=== PATIENT | male | born 1970 | race American Indian/Alaskan Native ===

== ENCOUNTER 2016-04-28 12:22 | Emergency (ER) | payer MEDICAID ==
[2016-04-28] MEDS ORDERED: FIORICET PO ONE (18:13)
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
[2016-04-28 18:54] VITALS: BP 141/104
== END 2016-04-28 19:08 | disposition home or self-care (01) ==
LOC: ED 12:22
DX: J06.9 Acute upper respiratory infection, unspecified (principal); J00 Acute nasopharyngitis [common cold]; K21.9 Gastro-esophageal reflux disease without esophagitis; G43.909 Migraine, unspecified, not intractable, without status migrainosus; J45.909 Unspecified asthma, uncomplicated; J44.9 Chronic obstructive pulmonary disease, unspecified; F12.10 Cannabis abuse, uncomplicated; Z87.891 Personal history of nicotine dependence
CPT/HCPCS: 96372; 99282; J2930

== ENCOUNTER 2017-06-07 08:34 | Inpatient (IN) | payer MEDICAID ==
[2017-06-07 10:03] LABS: Hemoglobin 15.6 gm/dl (11.8-15.2); Mean Corpuscular HGB Conc 35 % (32-34); Mean Corpuscular Hemoglobin 33 pg (28-32); Mean Corpuscular Volume 96 fl (84-94); Platelet Count 195 K/mm3 (140-440); Red Blood Count 4.71 M/mm3 (3.65-5.03); Red Cell Distribution Width 13.1 % (13.2-15.2)
--- NOTE | 2017-06-07 10:06 | XRay Report ---
CHEST 2 VIEWS INDICATION: Shortness of breath. COPD, asthma. COMPARISON: 01/12/2016. FINDINGS: PA and lateral chest radiographs demonstrate normal cardiomediastinal silhouette. Clear, well-expanded lungs. Intact bones. CONCLUSION: No acute disease in the chest. Thank you for the opportunity to participate in this patient's care.
[2017-06-07 10:15] LABS: BUN/Creatinine Ratio 8; Blood Urea Nitrogen 7 mg/dL (9-20); Calcium 9.1 mg/dL (8.4-10.2); Hemolysis Index 23
[2017-06-07 10:51] LABS: Basophils % (Manual) 0 % (0.0-1.8); RBC Morphology Normal; Total Cells Counted 100
[2017-06-07] MEDS ORDERED: ATROVENT IH ONE (11:38)
[2017-06-07] MEDS ORDERED: PROVENTIL IH ONE ×2 (11:38→12:16)
[2017-06-07] MEDS ORDERED: MORPHINE IV ONE (11:43)
[2017-06-07] MEDS ORDERED: ZOFRAN IV ONE (11:43)
--- NOTE | 2017-06-07 11:46 | Emergency Department Report ---
Blank Doc - Documentation Documentation: Patient is a 46-year-old [place] male with past medical history of asthma and COPD who presented with 4 days of cough cold congestion and wheezing. Patient also states that he's has a tight sensation in his chest. Patient on quick exam did have diffuse wheezes with retractions is difficulty speaking full sentences. Patient was started on neb treatments Solu-Medrol magnesium and removed to a treatment area to continue with the treatment will be reassessed by MLP
[2017-06-07] MEDS ORDERED: DUONEB *Not for PRN Use IH ONE ×2 (11:48→12:12)
[2017-06-07] MEDS ORDERED: MAGNESIUM SULFATE 2GM/50ML 2 GM/50 ML BAG IV ONE ×2 (11:51→12:27)
[2017-06-07] MEDS ORDERED: MAGNESIUM SULFATE 1 GM in NACL 0.9% 50 ML IV ONE ×3 (12:00→13:00)
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
[2017-06-07] MEDS ORDERED: NORCO 7.5/325 PO ONE (12:55)
[2017-06-07 18:17] VITALS: BP 128/89
== END 2017-06-07 18:59 | disposition left against medical advice (07) | DRG 191 ==
LOC: ED 08:34 → 3A 16:06
PROVIDERS: ADMIT Internal Medicine; ATTEND Internal Medicine
DX: J44.1 Chronic obstructive pulmonary disease with (acute) exacerbation (principal); J45.901 Unspecified asthma with (acute) exacerbation; K21.9 Gastro-esophageal reflux disease without esophagitis; G43.909 Migraine, unspecified, not intractable, without status migrainosus; F41.9 Anxiety disorder, unspecified; F12.90 Cannabis use, unspecified, uncomplicated; F14.90 Cocaine use, unspecified, uncomplicated; Z88.1 Allergy status to other antibiotic agents; Z87.01 Personal history of pneumonia (recurrent); Z72.89 Other problems related to lifestyle
CPT/HCPCS: 36415; 71046; 80048; 84484; 85007; 85025; 93005; 93010; 94640; 96374; 96375; J2270; J2405; J2930; J3475

== ENCOUNTER 2017-08-18 12:03 | Inpatient (IN) | payer MEDICAID ==
--- NOTE | 2017-08-18 12:50 | XRay Report ---
Chest 2 views: Compared to 06/07/17. History: Shortness of breath. Findings: Normal cardiomediastinal silhouette. Trachea is midline. No consolidation, pneumothorax or pleural effusion. Impression: No acute cardiopulmonary findings.
[2017-08-18 13:12] LABS: Hematocrit 47.1 % (35.5-45.6); Hemoglobin 16.1 gm/dl (11.8-15.2); Mean Corpuscular HGB Conc 34 % (32-34); Mean Corpuscular Hemoglobin 33 pg (28-32); Mean Corpuscular Volume 96 fl (84-94); Platelet Count 191 K/mm3 (140-440); Red Blood Count 4.91 M/mm3 (3.65-5.03); Red Cell Distribution Width 13.7 % (13.2-15.2)
[2017-08-18 13:16] LABS: Basophils % (Auto) 1.2 % (0.0-1.8); Eosinophils # (Auto) 0.3 K/mm3 (0.0-0.4); Eosinophils % (Auto) 10.4 % (0.0-4.3); Lymphocytes # (Auto) 1.2 K/mm3 (1.2-5.4); Lymphocytes % (Auto) 41.4 % (13.4-35.0); Monocytes # (Auto) 0.4 K/mm3 (0.0-0.8)
[2017-08-18 13:24] LABS: BUN/Creatinine Ratio 7; Blood Urea Nitrogen 6 mg/dL (9-20); Calcium 8.9 mg/dL (8.4-10.2); Hemolysis Index 9
[2017-08-18 14:20] LABS: Platelet Estimate Consistent w Auto; Total Cells Counted 100
[2017-08-18 14:21] LABS: RBC Morphology Normal
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
[2017-08-18] MEDS ORDERED: DELTASONE PO ONE (17:50)
[2017-08-18] MEDS ORDERED: PROVENTIL IH ONE (17:50)
[2017-08-18] MEDS ORDERED: ATROVENT IH ONE (17:50)
[2017-08-18] MEDS ORDERED: ZOFRAN ODT ONE (18:16)
[2017-08-18] MEDS ORDERED: PERCOCET 5/325 ONE (18:16)
[2017-08-18] MEDS ORDERED: XOPENEX IH ONE (18:47)
[2017-08-18] MEDS ORDERED: DUONEB *Not for PRN Use IH ONE ×2 (19:30→23:04)
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
[2017-08-18] MEDS ORDERED: ZOFRAN IV PRN (22:11)
[2017-08-18] MEDS ORDERED: SODIUM CHLORIDE FLUSH SYRINGE 10 ML IV PRN (22:11)
[2017-08-18] MEDS ORDERED: DUONEB *Not for PRN Use IH (22:13)
[2017-08-18] MEDS ORDERED: FIORICET PO PRN (22:14)
[2017-08-18] MEDS ORDERED: PROVENTIL IH PRN (22:20)
[2017-08-18] MEDS: NACL 0.9% 1000 ML 1,000 ML IV SCH (22:48)
[2017-08-18] MEDS: HEPARIN SUB-Q SCH (22:53)
[2017-08-18] MEDS: PEPCID PO SCH (22:58)
[2017-08-18] MEDS: PERCOCET 5/325 PO PRN (22:58)
[2017-08-18] MEDS: DUONEB *Not for PRN Use IH SCH (23:08)
[2017-08-19 05:43] LABS: Hematocrit 44.1 % (35.5-45.6); Hemoglobin 14.7 gm/dl (11.8-15.2); Mean Corpuscular HGB Conc 33 % (32-34); Mean Corpuscular Hemoglobin 33 pg (28-32); Mean Corpuscular Volume 98 fl (84-94); Platelet Count 184 K/mm3 (140-440); Red Blood Count 4.52 M/mm3 (3.65-5.03); Red Cell Distribution Width 13.4 % (13.2-15.2)
[2017-08-19] MEDS: PERCOCET 5/325 PO PRN ×3 (05:54→20:05)
[2017-08-19 05:58] LABS: Alanine Aminotransferase 16 units/L (7-56); Albumin 4.1 g/dL (3.9-5); BUN/Creatinine Ratio 9; Blood Urea Nitrogen 7 mg/dL (9-20); Calcium 8.9 mg/dL (8.4-10.2); Hemolysis Index 8
[2017-08-19 07:24] LABS: Band Neutrophils # (Manual) 0.1 K/mm3; Basophils % (Manual) 0 % (0.0-1.8); Eosinophils % (Manual) 0 % (0.0-4.3); Monocytes % (Manual) 0 % (0.0-7.3); Total Cells Counted 100
[2017-08-19 07:25] LABS: RBC Morphology Normal
[2017-08-19] MEDS: DUONEB *Not for PRN Use IH SCH ×3 (07:54→20:09)
[2017-08-19] MEDS ORDERED: DUONEB *Not for PRN Use IH SCH (08:00)
[2017-08-19] MEDS: LEVAQUIN 750MG/150ML 750 MG/150 ML BAG IV SCH (10:21)
[2017-08-19] MEDS: HEPARIN SUB-Q SCH ×2 (10:21→21:34)
[2017-08-19] MEDS: PEPCID PO SCH ×2 (10:21→21:34)
[2017-08-19] MEDS: SODIUM CHLORIDE FLUSH SYRINGE 10 ML IV SCH ×2 (10:22→21:41)
[2017-08-19] MEDS: HABITROL TD SCH (10:22)
--- NOTE | 2017-08-19 12:05 | Progress Note ---
Assessment and Plan Assessment and plan: Acute respiratory failure due to COPD and asthma exacerbation. Continue solu-medrol, Duoneb,supplemental Oxygen COPD exacerbation. Duoneb, solu-medrol DVT prophylaxis with Heparin. Full code status History Interval history: Shortness of breath, wheezing coughing Hospitalist Physical - Physical exam Narrative exam: General:Not in acute distress, lying in bed HEENT:Normocephalic, atraumatic Neck:supple,no JVD Lungs: Decreased breath sounds, bilateral rhonchi, wheeze Heart:S1 and S2 regular, no murmurs, rubs or gallop Abd: soft, non tender,non distended, normal bowel sounds Ext:no edema, no clubbing or cyanosis Neuro:Awake,alert,oriented x 3, moves all extremities, Psych:normal mood - Constitutional Vitals: Temp Pulse Resp BP Pulse Ox 98.8 F 72 18 121/83 97 08/19/17 07:58 08/19/17 08:10 08/19/17 08:10 08/19/17 07:58 08/19/17 07:59 General appearance: Present: mild distress, well-nourished Results - Labs CBC & Chem 7: 08/19/17 04:59 08/19/17 04:59 Labs: Laboratory Last Values WBC 4.1 K/mm3 (4.5-11.0) L 08/19/17 04:59 RBC 4.52 M/mm3 (3.65-5.03) 08/19/17 04:59 Hgb 14.7 gm/dl (11.8-15.2) 08/19/17 04:59 Hct 44.1 % (35.5-45.6) 08/19/17 04:59 MCV 98 fl (84-94) H 08/19/17 04:59 MCH 33 pg (28-32) H 08/19/17 04:59 MCHC 33 % (32-34) 08/19/17 04:59 RDW 13.4 % (13.2-15.2) 08/19/17 04:59 Plt Count 184 K/mm3 (140-440) 08/19/17 04:59 Lymph % (Auto) 41.4 % (13.4-35.0) H 08/18/17 12:58 [place] % (Auto) 12.0 % (0.0-7.3) H 08/18/17 12:58 Eos % (Auto) 10.4 % (0.0-4.3) H 08/18/17 12:58 Baso % (Auto) 1.2 % (0.0-1.8) 08/18/17 12:58 Lymph # 1.2 K/mm3 (1.2-5.4) 08/18/17 12:58 [place] # 0.4 K/mm3 (0.0-0.8) 08/18/17 12:58 Eos # 0.3 K/mm3 (0.0-0.4) 08/18/17 12:58 Baso # 0.0 K/mm3 (0.0-0.1) 08/18/17 12:58 Add Manual Diff Complete 08/19/17 04:59 Total Counted 100 08/19/17 04:59 Seg Neutrophils % Marriage Performer 08/19/17 04:59 Seg Neuts % (Manual) 89.0 % (40.0-70.0) H 08/19/17 04:59 Band Neutrophils % 2.0 % 08/19/17 04:59 Lymphocytes % (Manual) 9.0 % (13.4-35.0) L 08/19/17 04:59 Reactive Lymphs % (Man) 0 % 08/19/17 04:59 Monocytes % (Manual) 0 % (0.0-7.3) 08/19/17 04:59 Eosinophils % (Manual) 0 % (0.0-4.3) 08/19/17 04:59 Basophils % (Manual) 0 % (0.0-1.8) 08/19/17 04:59 Metamyelocytes % 0 % 08/19/17 04:59 Myelocytes % 0 % 08/19/17 04:59 Promyelocytes % 0 % 08/19/17 04:59 Blast Cells % 0 % 08/19/17 04:59 Nucleated RBC % Not Reportable 08/19/17 04:59 Seg Neutrophils # 1.0 K/mm3 (1.8-7.7) L 08/18/17 12:58 Seg Neutrophils # Man 3.6 K/mm3 (1.8-7.7) 08/19/17 04:59 Band Neutrophils # 0.1 K/mm3 08/19/17 04:59 Lymphocytes # (Manual) 0.4 K/mm3 (1.2-5.4) L 08/19/17 04:59 Abs React Lymphs (Man) 0.0 K/mm3 08/19/17 04:59 Monocytes # (Manual) 0.0 K/mm3 (0.0-0.8) 08/19/17 04:59 Eosinophils # (Manual) 0.0 K/mm3 (0.0-0.4) 08/19/17 04:59 Basophils # (Manual) 0.0 K/mm3 (0.0-0.1) 08/19/17 04:59 Metamyelocytes # 0.0 K/mm3 08/19/17 04:59 Myelocytes # 0.0 K/mm3 08/19/17 04:59 Promyelocytes # 0.0 K/mm3 08/19/17 04:59 Blast Cells # 0.0 K/mm3 08/19/17 04:59 WBC Morphology Not Reportable 08/19/17 04:59 Hypersegmented Neuts Not Reportable 08/19/17 04:59 Hyposegmented Neuts Not Reportable 08/19/17 04:59 Hypogranular Neuts Not Reportable 08/19/17 04:59 Smudge Cells Not Reportable 08/19/17 04:59 Toxic Granulation Not Reportable 08/19/17 04:59 Toxic Vacuolation Not Reportable 08/19/17 04:59 Dohle Bodies Not Reportable 08/19/17 04:59 Pelger-Huet Anomaly Not Reportable 08/19/17 04:59 Anne Rods Not Reportable 08/19/17 04:59 Platelet Estimate Appears normal 08/19/17 04:59 Clumped Platelets Not Reportable 08/19/17 04:59 Plt Clumps, EDTA Not Reportable 08/19/17 04:59 Large Platelets Not Reportable 08/19/17 04:59 Giant Platelets Not Reportable 08/19/17 04:59 Platelet Satelliting Not Reportable 08/19/17 04:59 Plt Morphology Comment Not Reportable 08/19/17 04:59 RBC Morphology Normal 08/19/17 04:59 Dimorphic RBCs Not Reportable 08/19/17 04:59 Polychromasia Not Reportable 08/19/17 04:59 Hypochromasia Not Reportable 08/19/17 04:59 Poikilocytosis Not Reportable 08/19/17 04:59 Anisocytosis Not Reportable 08/19/17 04:59 Microcytosis Not Reportable 08/19/17 04:59 Macrocytosis Not Reportable 08/19/17 04:59 Spherocytes Not Reportable 08/19/17 04:59 Pappenheimer Bodies Not Reportable 08/19/17 04:59 Sickle Cells Not Reportable 08/19/17 04:59 Target Cells Not Reportable 08/19/17 04:59 Tear Drop Cells Not Reportable 08/19/17 04:59 Ovalocytes Not Reportable 08/19/17 04:59 Helmet Cells Not Reportable 08/19/17 04:59 [place] Bodies Not Reportable 08/19/17 04:59 [place] Rings Not Reportable 08/19/17 04:59 [place] Cells Not Reportable 08/19/17 04:59 Bite Cells Not Reportable 08/19/17 04:59 Crenated Cell Not Reportable 08/19/17 04:59 Elliptocytes Not Reportable 08/19/17 04:59 Acanthocytes (Spur) Not Reportable 08/19/17 04:59 Rouleaux Not Reportable 08/19/17 04:59 Hemoglobin C Crystals Not Reportable 08/19/17 04:59 Schistocytes Not Reportable 08/19/17 04:59 Malaria parasites Not Reportable 08/19/17 04:59 Hernandez Bodies Not Reportable 08/19/17 04:59 Hem Pathologist Commnt No 08/19/17 04:59 D-Dimer < 135.0 ng/mlDDU (0-234) 08/18/17 18:37 Sodium 136 mmol/L (137-145) L 08/19/17 04:59 Potassium 4.5 mmol/L (3.6-5.0) 08/19/17 04:59 Chloride 98.6 mmol/L (98-107) 08/19/17 04:59 Carbon Dioxide 25 mmol/L (22-30) 08/19/17 04:59 Anion Gap 17 mmol/L 08/19/17 04:59 BUN 7 mg/dL (9-20) L 08/19/17 04:59 Creatinine 0.8 mg/dL (0.8-1.5) 08/19/17 04:59 Estimated GFR > 60 ml/min 08/19/17 04:59 BUN/Creatinine Ratio 9 % 08/19/17 04:59 Glucose 133 mg/dL (75-100) H 08/19/17 04:59 Hemoglobin A1c 5.6 % (4-6) 08/18/17 22:47 Calcium 8.9 mg/dL (8.4-10.2) 08/19/17 04:59 Total Bilirubin 0.30 mg/dL (0.1-1.2) 08/19/17 04:59 AST 14 units/L (5-40) 08/19/17 04:59 ALT 16 units/L (7-56) 08/19/17 04:59 Alkaline Phosphatase 60 units/L (35-129) 08/19/17 04:59 Troponin T < 0.010 ng/mL (0.00-0.029) 08/18/17 12:58 NT-Pro-B Natriuret Pep 10.81 pg/mL (0-450) 08/18/17 18:37 Total Protein 6.4 g/dL (6.3-8.2) 08/19/17 04:59 Albumin 4.1 g/dL (3.9-5) 08/19/17 04:59 Albumin/Globulin Ratio 1.8 % 08/19/17 04:59
[2017-08-19] MEDS: NACL 0.9% 1000 ML 1,000 ML IV SCH (13:15)
[2017-08-19] MEDS: AMBIEN PO PRN (23:28)
[2017-08-20] MEDS: PERCOCET 5/325 PO PRN ×3 (07:33→22:25)
[2017-08-20] MEDS: DUONEB *Not for PRN Use IH SCH ×3 (09:34→20:09)
[2017-08-20] MEDS: HEPARIN SUB-Q SCH ×2 (09:59→22:20)
[2017-08-20] MEDS: PEPCID PO SCH ×2 (09:59→22:25)
[2017-08-20] MEDS: SODIUM CHLORIDE FLUSH SYRINGE 10 ML IV SCH ×2 (09:59→22:27)
[2017-08-20] MEDS: LEVAQUIN 750MG/150ML 750 MG/150 ML BAG IV SCH (10:00)
[2017-08-20] MEDS: HABITROL TD SCH (10:36)
--- NOTE | 2017-08-20 12:07 | Progress Note ---
Assessment and Plan Assessment and plan: Acute respiratory failure due to COPD and asthma exacerbation. Continue solu-medrol, Duoneb,supplemental Oxygen. Still having shortness of breath,audible wheeze COPD exacerbation. Duoneb, solu-medrol. Severe headache. Will get CT head DVT prophylaxis with Heparin. Full code status History Interval history: Still having shortness of breath, wheezing coughing Severe headache Hospitalist Physical - Physical exam Narrative exam: General:Not in acute distress, lying in bed HEENT:Normocephalic, atraumatic Neck:supple,no JVD Lungs: Decreased breath sounds, bilateral rhonchi, wheeze Heart:S1 and S2 regular, no murmurs, rubs or gallop Abd: soft, non tender,non distended, normal bowel sounds Ext:no edema, no clubbing or cyanosis Neuro:Awake,alert,oriented x 3, moves all extremities, Psych:normal mood - Constitutional Vitals: Temp Pulse Resp BP Pulse Ox 97.8 F 93 H 20 129/89 96 08/20/17 07:43 08/20/17 09:31 08/20/17 09:31 08/20/17 07:43 08/20/17 07:44 General appearance: Present: well-nourished Results - Labs CBC & Chem 7: 08/19/17 04:59 08/19/17 04:59 Labs: Laboratory Last Values WBC 4.1 K/mm3 (4.5-11.0) L 08/19/17 04:59 RBC 4.52 M/mm3 (3.65-5.03) 08/19/17 04:59 Hgb 14.7 gm/dl (11.8-15.2) 08/19/17 04:59 Hct 44.1 % (35.5-45.6) 08/19/17 04:59 MCV 98 fl (84-94) H 08/19/17 04:59 MCH 33 pg (28-32) H 08/19/17 04:59 MCHC 33 % (32-34) 08/19/17 04:59 RDW 13.4 % (13.2-15.2) 08/19/17 04:59 Plt Count 184 K/mm3 (140-440) 08/19/17 04:59 Lymph % (Auto) 41.4 % (13.4-35.0) H 04/27/18 12:58 [place] % (Auto) 12.0 % (0.0-7.3) H 08/18/17 12:58 Eos % (Auto) 10.4 % (0.0-4.3) H 08/18/17 12:58 Baso % (Auto) 1.2 % (0.0-1.8) 08/18/17 12:58 Lymph # 1.2 K/mm3 (1.2-5.4) 08/18/17 12:58 [place] # 0.4 K/mm3 (0.0-0.8) 08/18/17 12:58 Eos # 0.3 K/mm3 (0.0-0.4) 08/18/17 12:58 Baso # 0.0 K/mm3 (0.0-0.1) 08/18/17 12:58 Add Manual Diff Complete 08/19/17 04:59 Total Counted 100 08/19/17 04:59 Seg Neutrophils % Commis Chef 08/19/17 04:59 Seg Neuts % (Manual) 89.0 % (40.0-70.0) H 08/19/17 04:59 Band Neutrophils % 2.0 % 08/19/17 04:59 Lymphocytes % (Manual) 9.0 % (13.4-35.0) L 08/19/17 04:59 Reactive Lymphs % (Man) 0 % 08/19/17 04:59 Monocytes % (Manual) 0 % (0.0-7.3) 08/19/17 04:59 Eosinophils % (Manual) 0 % (0.0-4.3) 08/19/17 04:59 Basophils % (Manual) 0 % (0.0-1.8) 08/19/17 04:59 Metamyelocytes % 0 % 08/19/17 04:59 Myelocytes % 0 % 08/19/17 04:59 Promyelocytes % 0 % 08/19/17 04:59 Blast Cells % 0 % 08/19/17 04:59 Nucleated RBC % Not Reportable 08/19/17 04:59 Seg Neutrophils # 1.0 K/mm3 (1.8-7.7) L 08/18/17 12:58 Seg Neutrophils # Man 3.6 K/mm3 (1.8-7.7) 08/19/17 04:59 Band Neutrophils # 0.1 K/mm3 08/19/17 04:59 Lymphocytes # (Manual) 0.4 K/mm3 (1.2-5.4) L 08/19/17 04:59 Abs React Lymphs (Man) 0.0 K/mm3 08/19/17 04:59 Monocytes # (Manual) 0.0 K/mm3 (0.0-0.8) 08/19/17 04:59 Eosinophils # (Manual) 0.0 K/mm3 (0.0-0.4) 08/19/17 04:59 Basophils # (Manual) 0.0 K/mm3 (0.0-0.1) 08/19/17 04:59 Metamyelocytes # 0.0 K/mm3 08/19/17 04:59 Myelocytes # 0.0 K/mm3 08/19/17 04:59 Promyelocytes # 0.0 K/mm3 08/19/17 04:59 Blast Cells # 0.0 K/mm3 08/19/17 04:59 WBC Morphology Not Reportable 08/19/17 04:59 Hypersegmented Neuts Not Reportable 08/19/17 04:59 Hyposegmented Neuts Not Reportable 08/19/17 04:59 Hypogranular Neuts Not Reportable 08/19/17 04:59 Smudge Cells Not Reportable 08/19/17 04:59 Toxic Granulation Not Reportable 08/19/17 04:59 Toxic Vacuolation Not Reportable 08/19/17 04:59 Dohle Bodies Not Reportable 08/19/17 04:59 Pelger-Huet Anomaly Not Reportable 08/19/17 04:59 Anne Rods Not Reportable 08/19/17 04:59 Platelet Estimate Appears normal 08/19/17 04:59 Clumped Platelets Not Reportable 08/19/17 04:59 Plt Clumps, EDTA Not Reportable 08/19/17 04:59 Large Platelets Not Reportable 08/19/17 04:59 Giant Platelets Not Reportable 08/19/17 04:59 Platelet Satelliting Not Reportable 08/19/17 04:59 Plt Morphology Comment Not Reportable 08/19/17 04:59 RBC Morphology Normal 08/19/17 04:59 Dimorphic RBCs Not Reportable 08/19/17 04:59 Polychromasia Not Reportable 08/19/17 04:59 Hypochromasia Not Reportable 08/19/17 04:59 Poikilocytosis Not Reportable 08/19/17 04:59 Anisocytosis Not Reportable 08/19/17 04:59 Microcytosis Not Reportable 08/19/17 04:59 Macrocytosis Not Reportable 08/19/17 04:59 Spherocytes Not Reportable 08/19/17 04:59 Pappenheimer Bodies Not Reportable 08/19/17 04:59 Sickle Cells Not Reportable 08/19/17 04:59 Target Cells Not Reportable 08/19/17 04:59 Tear Drop Cells Not Reportable 08/19/17 04:59 Ovalocytes Not Reportable 08/19/17 04:59 Helmet Cells Not Reportable 08/19/17 04:59 [place] Bodies Not Reportable 08/19/17 04:59 [place] Rings Not Reportable 08/19/17 04:59 [place] Cells Not Reportable 08/19/17 04:59 Bite Cells Not Reportable 08/19/17 04:59 Crenated Cell Not Reportable 08/19/17 04:59 Elliptocytes Not Reportable 08/19/17 04:59 Acanthocytes (Spur) Not Reportable 08/19/17 04:59 Rouleaux Not Reportable 08/19/17 04:59 Hemoglobin C Crystals Not Reportable 08/19/17 04:59 Schistocytes Not Reportable 08/19/17 04:59 Malaria parasites Not Reportable 08/19/17 04:59 [place] Bodies Not Reportable 08/19/17 04:59 Hem Pathologist Commnt No 08/19/17 04:59 D-Dimer < 135.0 ng/mlDDU (0-234) 08/18/17 18:37 Sodium 136 mmol/L (137-145) L 08/19/17 04:59 Potassium 4.5 mmol/L (3.6-5.0) 08/19/17 04:59 Chloride 98.6 mmol/L (98-107) 08/19/17 04:59 Carbon Dioxide 25 mmol/L (22-30) 08/19/17 04:59 Anion Gap 17 mmol/L 08/19/17 04:59 BUN 7 mg/dL (9-20) L 04/28/18 04:59 Creatinine 0.8 mg/dL (0.8-1.5) 08/19/17 04:59 Estimated GFR > 60 ml/min 08/19/17 04:59 BUN/Creatinine Ratio 9 % 08/19/17 04:59 Glucose 133 mg/dL (75-100) H 08/19/17 04:59 Hemoglobin A1c 5.6 % (4-6) 08/18/17 22:47 Calcium 8.9 mg/dL (8.4-10.2) 08/19/17 04:59 Total Bilirubin 0.30 mg/dL (0.1-1.2) 08/19/17 04:59 AST 14 units/L (5-40) 08/19/17 04:59 ALT 16 units/L (7-56) 08/19/17 04:59 Alkaline Phosphatase 60 units/L (35-129) 08/19/17 04:59 Troponin T < 0.010 ng/mL (0.00-0.029) 08/18/17 12:58 NT-Pro-B Natriuret Pep 10.81 pg/mL (0-450) 08/18/17 18:37 Total Protein 6.4 g/dL (6.3-8.2) 08/19/17 04:59 Albumin 4.1 g/dL (3.9-5) 08/19/17 04:59 Albumin/Globulin Ratio 1.8 % 08/19/17 04:59
--- NOTE | 2017-08-20 12:08 | Cat Scan Report ---
CT scan of head without IV contrast: History: Severe headache. Findings: Ventricles are normal in size and midline in location. No evidence of acute ischemia, hemorrhage or mass. No extra axial fluid collection. Normal brainstem and cerebellum. Normal visualized sinuses and mastoid air cells. Impression: No acute intracranial abnormality.
[2017-08-20] MEDS: MORPHINE IV PRN ×2 (12:52→20:56)
[2017-08-20] MEDS: AMBIEN PO PRN (22:25)
[2017-08-21] MEDS: PERCOCET 5/325 PO PRN ×3 (06:03→18:38)
--- NOTE | 2017-08-21 08:49 | Progress Note ---
Assessment and Plan Assessment and plan: Acute respiratory failure due to COPD and asthma exacerbation. Continue solu-medrol, Duoneb,supplemental Oxygen. Still having shortness of breath,audible wheeze COPD exacerbation. Duoneb, solu-medrol. Anxiety. He states he lost a close friend 2 days ago. feeling anxious. Give xanax prn Severe headache. CT head negative DVT prophylaxis with Heparin. Full code status History Interval history: Still having shortness of breath, wheezing coughing Severe headache. Anxiety Hospitalist Physical - Physical exam Narrative exam: General:Not in acute distress, lying in bed HEENT:Normocephalic, atraumatic Neck:supple,no JVD Lungs: Decreased breath sounds, bilateral rhonchi, wheeze Heart:S1 and S2 regular, no murmurs, rubs or gallop Abd: soft, non tender,non distended, normal bowel sounds Ext:no edema, no clubbing or cyanosis Neuro:Awake,alert,oriented x 3, moves all extremities, Psych: anxious - Constitutional Vitals: Temp Pulse Resp BP Pulse Ox 98.7 F 83 16 133/98 94 08/21/17 07:04 08/21/17 07:04 08/21/17 07:04 08/21/17 07:04 08/21/17 07:04 General appearance: Present: well-nourished Results - Labs CBC & Chem 7: 08/19/17 04:59 08/19/17 04:59 Labs: Laboratory Last Values WBC 4.1 K/mm3 (4.5-11.0) L 08/19/17 04:59 RBC 4.52 M/mm3 (3.65-5.03) 08/19/17 04:59 Hgb 14.7 gm/dl (11.8-15.2) 08/19/17 04:59 Hct 44.1 % (35.5-45.6) 08/19/17 04:59 MCV 98 fl (84-94) H 08/19/17 04:59 MCH 33 pg (28-32) H 08/19/17 04:59 MCHC 33 % (32-34) 08/19/17 04:59 RDW 13.4 % (13.2-15.2) 08/19/17 04:59 Plt Count 184 K/mm3 (140-440) 08/19/17 04:59 Lymph % (Auto) 41.4 % (13.4-35.0) H 08/18/17 12:58 Lipscomb % (Auto) 12.0 % (0.0-7.3) H 08/18/17 12:58 Eos % (Auto) 10.4 % (0.0-4.3) H 08/18/17 12:58 Baso % (Auto) 1.2 % (0.0-1.8) 08/18/17 12:58 Lymph # 1.2 K/mm3 (1.2-5.4) 08/18/17 12:58 Lipscomb # 0.4 K/mm3 (0.0-0.8) 08/18/17 12:58 Eos # 0.3 K/mm3 (0.0-0.4) 08/18/17 12:58 Baso # 0.0 K/mm3 (0.0-0.1) 08/18/17 12:58 Add Manual Diff Complete 08/19/17 04:59 Total Counted 100 08/19/17 04:59 Seg Neutrophils % Heel Top Lift Splitter 08/19/17 04:59 Seg Neuts % (Manual) 89.0 % (40.0-70.0) H 08/19/17 04:59 Band Neutrophils % 2.0 % 08/19/17 04:59 Lymphocytes % (Manual) 9.0 % (13.4-35.0) L 08/19/17 04:59 Reactive Lymphs % (Man) 0 % 08/19/17 04:59 Monocytes % (Manual) 0 % (0.0-7.3) 08/19/17 04:59 Eosinophils % (Manual) 0 % (0.0-4.3) 08/19/17 04:59 Basophils % (Manual) 0 % (0.0-1.8) 08/19/17 04:59 Metamyelocytes % 0 % 08/19/17 04:59 Myelocytes % 0 % 08/19/17 04:59 Promyelocytes % 0 % 08/19/17 04:59 Blast Cells % 0 % 08/19/17 04:59 Nucleated RBC % Not Reportable 08/19/17 04:59 Seg Neutrophils # 1.0 K/mm3 (1.8-7.7) L 08/18/17 12:58 Seg Neutrophils # Man 3.6 K/mm3 (1.8-7.7) 08/19/17 04:59 Band Neutrophils # 0.1 K/mm3 08/19/17 04:59 Lymphocytes # (Manual) 0.4 K/mm3 (1.2-5.4) L 08/19/17 04:59 Abs React Lymphs (Man) 0.0 K/mm3 08/19/17 04:59 Monocytes # (Manual) 0.0 K/mm3 (0.0-0.8) 08/19/17 04:59 Eosinophils # (Manual) 0.0 K/mm3 (0.0-0.4) 08/19/17 04:59 Basophils # (Manual) 0.0 K/mm3 (0.0-0.1) 08/19/17 04:59 Metamyelocytes # 0.0 K/mm3 08/19/17 04:59 Myelocytes # 0.0 K/mm3 08/19/17 04:59 Promyelocytes # 0.0 K/mm3 08/19/17 04:59 Blast Cells # 0.0 K/mm3 08/19/17 04:59 WBC Morphology Not Reportable 08/19/17 04:59 Hypersegmented Neuts Not Reportable 08/19/17 04:59 Hyposegmented Neuts Not Reportable 08/19/17 04:59 Hypogranular Neuts Not Reportable 08/19/17 04:59 Smudge Cells Not Reportable 08/19/17 04:59 Toxic Granulation Not Reportable 08/19/17 04:59 Toxic Vacuolation Not Reportable 08/19/17 04:59 Dohle Bodies Not Reportable 08/19/17 04:59 Pelger-Huet Anomaly Not Reportable 08/19/17 04:59 Anne Rods Not Reportable 08/19/17 04:59 Platelet Estimate Appears normal 08/19/17 04:59 Clumped Platelets Not Reportable 08/19/17 04:59 Plt Clumps, EDTA Not Reportable 08/19/17 04:59 Large Platelets Not Reportable 08/19/17 04:59 Giant Platelets Not Reportable 08/19/17 04:59 Platelet Satelliting Not Reportable 08/19/17 04:59 Plt Morphology Comment Not Reportable 08/19/17 04:59 RBC Morphology Normal 08/19/17 04:59 Dimorphic RBCs Not Reportable 08/19/17 04:59 Polychromasia Not Reportable 08/19/17 04:59 Hypochromasia Not Reportable 08/19/17 04:59 Poikilocytosis Not Reportable 08/19/17 04:59 Anisocytosis Not Reportable 08/19/17 04:59 Microcytosis Not Reportable 08/19/17 04:59 Macrocytosis Not Reportable 08/19/17 04:59 Spherocytes Not Reportable 08/19/17 04:59 Pappenheimer Bodies Not Reportable 08/19/17 04:59 Sickle Cells Not Reportable 08/19/17 04:59 Target Cells Not Reportable 08/19/17 04:59 Tear Drop Cells Not Reportable 08/19/17 04:59 Ovalocytes Not Reportable 08/19/17 04:59 Helmet Cells Not Reportable 08/19/17 04:59 [place] Bodies Not Reportable 08/19/17 04:59 [place] Rings Not Reportable 08/19/17 04:59 [place] Cells Not Reportable 08/19/17 04:59 Bite Cells Not Reportable 08/19/17 04:59 Crenated Cell Not Reportable 08/19/17 04:59 Elliptocytes Not Reportable 08/19/17 04:59 Acanthocytes (Spur) Not Reportable 08/19/17 04:59 Rouleaux Not Reportable 08/19/17 04:59 Hemoglobin C Crystals Not Reportable 08/19/17 04:59 Schistocytes Not Reportable 08/19/17 04:59 Malaria parasites Not Reportable 08/19/17 04:59 Hernandez Bodies Not Reportable 08/19/17 04:59 Hem Pathologist Commnt No 08/19/17 04:59 D-Dimer < 135.0 ng/mlDDU (0-234) 08/18/17 18:37 Sodium 136 mmol/L (137-145) L 08/19/17 04:59 Potassium 4.5 mmol/L (3.6-5.0) 08/19/17 04:59 Chloride 98.6 mmol/L (98-107) 08/19/17 04:59 Carbon Dioxide 25 mmol/L (22-30) 08/19/17 04:59 Anion Gap 17 mmol/L 08/19/17 04:59 BUN 7 mg/dL (9-20) L 08/19/17 04:59 Creatinine 0.8 mg/dL (0.8-1.5) 08/19/17 04:59 Estimated GFR > 60 ml/min 08/19/17 04:59 BUN/Creatinine Ratio 9 % 08/19/17 04:59 Glucose 133 mg/dL (75-100) H 08/19/17 04:59 Hemoglobin A1c 5.6 % (4-6) 08/18/17 22:47 Calcium 8.9 mg/dL (8.4-10.2) 08/19/17 04:59 Total Bilirubin 0.30 mg/dL (0.1-1.2) 08/19/17 04:59 AST 14 units/L (5-40) 08/19/17 04:59 ALT 16 units/L (7-56) 08/19/17 04:59 Alkaline Phosphatase 60 units/L (35-129) 08/19/17 04:59 Troponin T < 0.010 ng/mL (0.00-0.029) 08/18/17 12:58 NT-Pro-B Natriuret Pep 10.81 pg/mL (0-450) 08/18/17 18:37 Total Protein 6.4 g/dL (6.3-8.2) 08/19/17 04:59 Albumin 4.1 g/dL (3.9-5) 08/19/17 04:59 Albumin/Globulin Ratio 1.8 % 08/19/17 04:59
[2017-08-21] MEDS: PEPCID PO SCH ×2 (09:51→22:51)
[2017-08-21] MEDS: HEPARIN SUB-Q SCH ×2 (09:51→22:55)
[2017-08-21] MEDS: LEVAQUIN PO SCH (09:51)
[2017-08-21] MEDS: SODIUM CHLORIDE FLUSH SYRINGE 10 ML IV SCH ×2 (09:52→22:57)
[2017-08-21] MEDS: XANAX PO PRN ×2 (09:59→20:02)
[2017-08-21] MEDS: DUONEB *Not for PRN Use IH SCH ×3 (10:38→20:54)
[2017-08-21] MEDS: HABITROL TD SCH (11:17)
[2017-08-22] MEDS: PERCOCET 5/325 PO PRN ×3 (01:22→17:41)
[2017-08-22] MEDS: AMBIEN PO PRN (01:22)
[2017-08-22] MEDS: XANAX PO PRN (10:08)
[2017-08-22] MEDS: HEPARIN SUB-Q SCH ×2 (10:08→23:41)
[2017-08-22] MEDS: PEPCID PO SCH ×2 (10:08→23:39)
[2017-08-22] MEDS: LEVAQUIN PO SCH (10:08)
[2017-08-22] MEDS: HABITROL TD SCH (10:09)
[2017-08-22] MEDS: DUONEB *Not for PRN Use IH SCH ×4 (10:25→20:29)
[2017-08-22] MEDS: SODIUM CHLORIDE FLUSH SYRINGE 10 ML IV SCH ×2 (12:13→23:40)
--- NOTE | 2017-08-22 15:26 | Progress Note ---
Assessment and Plan Acute respiratory failure due to COPD and asthma exacerbation. Continue solu-medrol, Duoneb,supplemental Oxygen. states Still having shortness of breath on ambulation COPD exacerbation. Duoneb, solu-medrol. Anxiety. He states he lost a close friend 2 days ago. feeling anxious. Give xanax prn Severe headache. CT head negative, likely tension headache DVT prophylaxis with Heparin. Full code status Brief History 46-year-old -Spanish male with history of COPD and asthma came in for increasing shortness of breath of one day duration and symptom Not responding to his home medications and nebulizer treatments. radiological data: CXR - no infiltrates CT head- no acute process Hospitalist Physical General:Not in acute distress, lying in bed HEENT:Normocephalic, atraumatic Neck:supple,no JVD Lungs: Decreased breath sounds, bilateral rhonchi, wheeze Heart:S1 and S2 regular, no murmurs, rubs or gallop Abd: soft, non tender,non distended, normal bowel sounds Ext:no edema, no clubbing or cyanosis Neuro:Awake,alert,oriented x 3, moves all extremities, Psych: anxious Subjective Date of service: 08/22/17 Interval history: Still having shortness of breath, c/o wheezing, coughing States headache better but c/o Anxiety Objective - Constitutional Vitals: Vital Signs - 12hr 08/22/17 08/22/17 09:28 10:29 Temperature 98.7 F Pulse Rate 113 H Pulse Rate [ 100 H Anterior Bilateral Upper Lobe] Pulse Rate [ 110 H Anterior Bilateral] Respiratory 18 Rate Respiratory 20 Rate [Anterior Bilateral Upper Lobe] Respiratory 18 Rate [Anterior Bilateral] Blood Pressure 131/91 [Right] O2 Sat by Pulse 95 Oximetry - Labs CBC & Chem 7: 08/19/17 04:59 08/19/17 04:59
[2017-08-22] MEDS ORDERED: APRESOLINE IV PRN (22:52)
[2017-08-22] MEDS: TYLENOL PO PRN (23:47)
[2017-08-23] MEDS: DUONEB *Not for PRN Use IH SCH ×2 (09:11→15:35)
[2017-08-23] MEDS: HABITROL TD SCH (09:53)
[2017-08-23] MEDS: PEPCID PO SCH (09:54)
[2017-08-23] MEDS: HEPARIN SUB-Q SCH (09:54)
[2017-08-23] MEDS: PERCOCET 5/325 PO PRN (09:54)
[2017-08-23] MEDS: LEVAQUIN PO SCH (09:54)
[2017-08-23] MEDS: SODIUM CHLORIDE FLUSH SYRINGE 10 ML IV SCH (10:22)
--- NOTE | 2017-08-23 12:11 | Discharge Summary ---
Providers - Providers Date of Admission: 08/18/17 19:58 Date of discharge: 08/23/17 Attending physician: TASHA ROMERO Primary care physician: WALT BEAN Hospitalization Condition: Stable Hospital course: Brief History 46-year-old -[place] male with history of COPD and asthma came in for increasing shortness of breath of one day duration and symptom Not responding to his home medications and nebulizer treatments. Patient was admitted to the hospital and placed on COPD protocol. He was placed on empiric Solu-Medrol, frequent DuoNeb's breathing treatments, abx and supplemental O2 to keep oxygen saturation more than 92%. Patient was improving slowly and continue to complain of headache. He was evaluated by CT scan of the head without contrast and that it was unremarkable. His chest x-ray did not show any infiltrates. Patient was slowly weaned off from oxygen and placed on by mouth steroid on discharge. He was discharged home in stable condition. Discharge diagnoses and management: /Acute respiratory failure due to COPD and asthma exacerbation. Patient was managed with IV solu-medrol, frequent Duoneb, levaquin and supplemental Oxygen. /COPD exacerbation. Placed on Duoneb, solu-medrol. Anxiety. He states he lost a close friend recently. given xanax prn Severe headache. CT head negative, likely tension headache, placed on a fioricet as needed on discharge DVT prophylaxis with Heparin. Full code status radiological data: CXR - no infiltrates CT head- no acute process Hospitalist Physical General:Not in acute distress, lying in bed HEENT:Normocephalic, atraumatic Neck:supple,no JVD Lungs: Decreased breath sounds, no bilateral rhonchi, no wheeze Heart:S1 and S2 regular, no murmurs, rubs or gallop Abd: soft, non tender,non distended, normal bowel sounds Ext:no edema, no clubbing or cyanosis Neuro:Awake,alert,oriented x 3, moves all extremities, Psych: Cooperative Disposition: DC-01 TO HOME OR SELFCARE Time spent for discharge: 32 minutes Core Measure Documentation - Palliative Care Palliative Care/ Comfort Measures: Not Applicable - Core Measures Any of the following diagnoses?: none Exam - Constitutional Vitals: Temp Pulse Resp BP Pulse Ox 98.3 F 105 H 18 137/95 96 08/23/17 07:27 08/23/17 09:12 08/23/17 09:12 08/23/17 07:27 08/23/17 07:27 Plan Activity: advance as tolerated Weight Bearing Status: Weight Bear as Tolerated Diet: low fat, low salt Follow up with: WALT BEAN [Primary Care Provider] - 3-5 Days Prescriptions: Zolpidem [Ambien] 5 mg PO QHS PRN #10 tablet PRN Reason: Sleep Albuterol Sulfate [Albuterol 0.63% NEBS] 0.63 mg INHALATION Q4HR PRN #30 vial PRN Reason: Wheezing Budesoni/Formotero 160-4.5(Nf) [Symbicort 160-4.5 (Nf)] 2 puff IH BID 30 Days inha Butalb/Acetamin/Caff 50-325-40 [Fioricet] 1 tab PO Q4H PRN #14 tablet PRN Reason: Headache Levofloxacin [Levaquin TAB] 750 mg PO DAILY #2 tablet predniSONE [Deltasone] 50 mg PO QDAY #4 tab
[2017-08-23] MEDS: XANAX PO PRN (12:12)
[2017-08-23] MEDS: TYLENOL PO PRN (12:13)
[2017-08-23 15:35] VITALS: BP 128/97
== END 2017-08-23 16:05 | disposition home or self-care (01) | DRG 189 ==
LOC: ED 12:03 → 3A 19:58
PROVIDERS: ADMIT Internal Medicine; ATTEND Internal Medicine
DX: J96.01 Acute respiratory failure with hypoxia (principal); J44.1 Chronic obstructive pulmonary disease with (acute) exacerbation; K21.9 Gastro-esophageal reflux disease without esophagitis; G43.909 Migraine, unspecified, not intractable, without status migrainosus; J45.901 Unspecified asthma with (acute) exacerbation; F41.9 Anxiety disorder, unspecified
CPT/HCPCS: 36415; 70450; 71046; 80048; 80053; 83036; 83880; 84484; 85007; 85025; 85379; 93005; 93010; 94640; J0360; J1644; J1956; J2270; J2930; J7030; J7512; Q0162